=== PATIENT | male | born 1960 | race Caucasian/White ===

== ENCOUNTER 2019-12-03 07:53 | Day surgery (SDC) | payer BC ==
[~2019-12-03 07:53] MED LIST: Bupivacaine 0.5% 50 ML MDV ONE; Lidocaine 1% with EPINEPHrine 1:100,000 50 ML MDV ONE; Midazolam 1 MG/ML 2 ML SDV ONE; Propofol 200 MG/20 ML SDV ONE; fentaNYL 100 MCG/2 ML SDV ONE
[2019-12-03] MEDS ORDERED: Acetaminophen 500 MG Tab PO ONE (08:00)
[2019-12-03] MEDS ORDERED: Dextrose 5%-Lactated Ringers 1,000 ML IV SCH (08:30)
[2019-12-03] MEDS ORDERED: ceFAZolin 2 GM in Premix Bag 1 BAG IV ONE (08:30)
[2019-12-03] MEDS ORDERED: Albuterol 8 GM Inhaler INH ONE (08:45)
[2019-12-03] MEDS ORDERED: Levalbuterol Tartrate HFA 15 GM Inhaler INH PRN (08:51)
[2019-12-03] MEDS ORDERED: Propofol 200 MG/20 ML SDV ONE (09:17)
[2019-12-03] MEDS ORDERED: Glycopyrrolate 0.2 MG/ML 5 ML MDV ONE (09:25)
[2019-12-03] MEDS ORDERED: Ketorolac 60 MG/2 ML SDV ONE (10:07)
[2019-12-03] MEDS ORDERED: hydrOXYzine HCL 100 MG/2 ML SDV IM ONE (10:16)
[2019-12-03] MEDS ORDERED: fentaNYL 100 MCG/2 ML SDV IVPUSH ONE (10:17)
[2019-12-03] MEDS ORDERED: Acetaminophen/oxyCODONE 325-5 MG Tab PO PRN (11:45)
--- NOTE | 2019-12-13 12:31 | OR ---
DATE OF PROCEDURE: 12/03/2019 SURGEON: Mahamed Wynne MD PREOPERATIVE DIAGNOSIS: Left inguinal hernia. POSTOPERATIVE DIAGNOSES: 1. Direct left inguinal hernias. 2. Left ilioinguinal and iliohypogastric nerves at risk for scar entrapment. OPERATIVE PROCEDURE: Left inguinal exploration with: 1. Repair of left inguinal hernia with mesh (96834). 2. Division of portion of left ilioinguinal nerve ([id number]). 3. Division of portion of left iliohypogastric nerve (08773). ANESTHESIA: Local plus IV sedation. RENAL CASE MANAGER: Rachael Conteh PA-C INDICATIONS FOR PROCEDURE: A 59-year-old male presenting with increasingly significant hernia involving the left inguinal area. Plan is to proceed with a left inguinal exploration with repair with mesh plug technique. The potential risks of the procedure including bleeding, infection, injury to underlying viscera, problems with mesh becoming infected or hernia recurring, and that we often will divide the ilioinguinal nerve and/or iliohypogastric nerves if it is felt to be at risk for entrapment by scarring and resulting in chronic pain were all gone over, and the patient wishes to proceed. DETAILS OF PROCEDURE: The patient was taken to the operating room and placed in the supine position. After IV sedation was administered, the left inguinal area was prepped and draped and anesthetized with 1% lidocaine mixed with Marcaine. A standard left inguinal incision was made and carried down through the skin and subcutaneous tissue and through the external oblique aponeurosis. Subaponeurotic flaps were then raised superiorly and inferiorly. The patient was noted to have no indirect component to the inguinal hernia. After dissection of the cord structures, did have a fairly broad-based direct hernia. The ilioinguinal nerve and iliohypogastric nerves were both felt to be at risk for scar entrapment with subsequent placement of flat portion of the mesh, the systems were therefore divided and excised out to the far lateral aspect of the incision. The transversalis fascia over the direct hernia was then incised, allowing dissection underneath the conjoined tendon medially, superiorly, and laterally. The extra large mesh plug was then placed into the defect. This was fixed to the Sergio ligament with titanium tacking screws to the underside of the conjoined tendon medially, superiorly, and laterally with horizontal mattress sutures of 2-0 Vicryl stitch. The flat portion of the mesh plug system was then placed across the floor and sutured to the lateral cord structures with some 3-0 Vicryl stitch and fixed to the pubic tubercle with titanium tacking screws as well. The external oblique aponeurosis was then reapproximated over the cord structures, and this was with a 3-0 Vicryl stitch which also was used to close the subcutaneous tissue, and the skin was then closed with a 4-0 Vicryl subcuticular stitch. Dressing was applied. The patient was taken to the recovery room in satisfactory condition. Physician assistant golf course superintendent, Rachael Conteh, played an essential role in assisting in this case, helping to position the patient, retract structures as needed, as well as suturing and cutting sutures when indicated. Her presence improved patient's safety and decreased operative time. Mahamed Wynne MD /[id number] MTDD
== END 2019-12-03 12:35 | disposition home or self-care (01) ==
LOC: JP.SDS 07:53
PROVIDERS: ATTEND Surgery
DX: K40.90 Unilateral inguinal hernia, without obstruction or gangrene, not specified as recurrent (principal); I10 Essential (primary) hypertension; J45.909 Unspecified asthma, uncomplicated
CPT/HCPCS: 49505; 64790; 88305; A9270; C1713; C1781; J0690; J1885; J2250; J2704; J3010; J3410; J3490; J7121

== ENCOUNTER 2020-03-25 09:35 | Emergency (ER) | payer BC, OTHER ==
--- NOTE | 2020-03-25 10:08 | EDM.PDOC ---
ED HPI GENERAL MEDICAL PROBLEM - General Chief Complaint: Headache Stated Complaint: COVID POS, HEADACHE, NAUSEA, CHILLS Time Seen by Provider: 03/25/20 10:04 Source of Information: Reports: Patient, Old Records History Limitations: Reports: No Limitations - History of Present Illness INITIAL COMMENTS - FREE TEXT/NARRATIVE: Helder is a 59-year-old male presenting to the ED for complaints of headache, body aches, fever, chills with night sweats, and severe nausea that is unrelenting to the use of Zofran. He reports he is only been able to eat a very small amount of food in the last week. He also reports that he is not been able to drink much as it causes nausea, vomiting, and dry heaving. Emesis is pretty much clear discharge and he reports that he was told by the clinician at the clinic that it was due to his postnasal drip, however, is likely due to the COVID-19 affecting his GI tract. The patient was seen in the [facility] clinic and diagnosed on Friday with COVID-19. He has multiple comorbidities putting him in the high risk group for COVID-19 including moderate persistent asthma, essential hypertension, hypercholesterolemia, and at the time of his notification of Covid was offered Bamlanivimab which he had declined. His onset of symptoms were 9 days ago and he is only eligible for this infusion for 10 days from the onset of symptoms. He was instructed to quarantine by the [facility] clinic Headache Pain Score (Numeric/FACES): 4 - Related Data Allergies Allergy/AdvReac Type Severity Reaction Status Date / Time bee venom protein (honey bee) Allergy Hives Verified 03/25/20 10:07 cat dander Allergy Hives Verified 03/25/20 10:07 dog dander Allergy Hives Verified 03/25/20 10:07 pollen extracts Allergy Hives Verified 03/25/20 10:07 albuterol AdvReac Anxiety Verified 03/25/20 10:07 Home Meds: Home Meds Fluticasone Propionate [Clarispray] 1 spray INH DAILY 12/01/19 [History] Levalbuterol Tartrate [Xopenex HFA] 2 puff INH DAILY 12/01/19 [History] Losartan Potassium [Cozaar] 100 mg PO DAILY 12/01/19 [History] Mometasone Furoate [Asmanex] 2 puff INH BID 12/01/19 [History] Simvastatin [Zocor] 10 mg PO DAILY 12/01/19 [History] Escitalopram Oxalate 20 mg PO DAILY 12/03/19 [History] Montelukast [Singulair] 10 mg PO DAILY 03/25/20 [History] Tiotropium Homer [Spiriva Respimat] 2 puff IH DAILY 03/25/20 [History] Past Medical History HEENT History: Reports: Impaired Vision Cardiovascular History: Reports: High Cholesterol, Hypertension Respiratory History: Reports: Asthma Other Gastrointestinal History: left inguinal hernia here for repair, 11/2019 - Past Surgical History HEENT Surgical History: Reports: None Cardiovascular Surgical History: Reports: None GI Surgical History: Reports: Appendectomy, Colonoscopy Social & Family History - Family History Family Medical History: No Pertinent Family History - Caffeine Use Caffeine Use: Reports: None ED ROS GENERAL - Review of Systems Review Of Systems: See Below Constitutional: Reports: Fever, Chills, Malaise, Fatigue, Night Sweats, Diaphoresis, Decreased Appetite HEENT: Reports: Rhinitis Respiratory: Reports: Shortness of Breath, Cough Cardiovascular: Reports: No Symptoms Endocrine: Reports: Fatigue GI/Abdominal: Reports: Abdominal Pain, Constipation, Decreased Appetite, Nausea, Vomiting : Reports: No Symptoms Musculoskeletal: Reports: Muscle Pain, Muscle Stiffness Neurological: Reports: Headache Psychiatric: Reports: No Symptoms Hematologic/Lymphatic: Reports: No Symptoms Immunologic: Reports: No Symptoms ED EXAM, GENERAL - Physical Exam Exam: See Below Exam Limited By: No Limitations General Appearance: Alert, Mild Distress Eye Exam: Bilateral Eye: EOMI, PERRL Nose: Clear Rhinorrhea Throat/Mouth: Normal Inspection, Normal Lips, Normal Oropharynx, Normal Voice, No Airway Compromise Head: Atraumatic, Normocephalic Neck: Normal Inspection, Supple, Non-Tender, Full Range of Motion. No: Lymphadenopathy (R), Lymphadenopathy (L) Respiratory/Chest: No Respiratory Distress, Lungs Clear, Normal Breath Sounds Cardiovascular: Normal Peripheral Pulses, Regular Rate, Rhythm, No Murmur Peripheral Pulses: 2+: Radial (L), Radial (R) GI/Abdominal: Soft, Non-Tender, Abnormal Bowel Sounds (Diminished bowel sounds). No: Guarding, Rigid, Rebound Back Exam: Normal Inspection, Full Range of Motion Extremities: Normal Inspection, Normal Range of Motion Neurological: Alert, Oriented, Normal Cognition, No Motor/Sensory Deficits Psychiatric: Normal Affect, Normal Mood Skin Exam: Warm, Dry, Intact, Normal Color, No Rash Lymphatic: No Adenopathy Course - Vital Signs Last Recorded V/S: Last Vital Signs Temp 36.6 C 03/25/20 10:01 Pulse 70 03/25/20 10:01 Resp 16 03/25/20 10:01 BP Pulse Ox 97 03/25/20 10:01 - Orders/Labs/Meds Orders: Active Orders 24 hr Category Date Time Status Vital Signs [RC] Q15M Care 03/25/20 10:34 Active EPINEPHrine [Adrenalin] Med 03/25/20 10:33 Active 0.3 mg IM ONETIME PRN Famotidine [Pepcid] Med 03/25/20 10:33 Active 20 mg IVPUSH ONETIME PRN Sodium Chloride 0.9% [Saline Flush] Med 03/25/20 10:33 Active 10 ml FLUSH ASDIRECTED PRN Sodium Chloride 0.9% [Saline Flush] Med 03/25/20 10:45 Active 30 ml FLUSH ASDIRECTED diphenhydrAMINE [Benadryl] Med 03/25/20 10:33 Active 50 mg IVPUSH ONETIME PRN methylPREDNISolone Sod Succ [Solu-MEDROL] Med 03/25/20 10:33 Active 125 mg IVPUSH ONETIME PRN Saline Lock Insert [OM.PC] Routine Oth 03/25/20 10:33 Ordered Medication Orders Diphenhydramine HCl (Benadryl) 50 mg IVPUSH ONETIME PRN PRN Reason: hypersensitivity reaction Epinephrine HCl (Adrenalin) 0.3 mg IM ONETIME PRN PRN Reason: hypersensitivity reaction Famotidine (Pepcid) 20 mg IVPUSH ONETIME PRN PRN Reason: hypersensitivity reaction Methylprednisolone Sodium Succinate (Solu-Medrol) 125 mg IVPUSH ONETIME PRN PRN Reason: hypersensitivity reaction Sodium Chloride (Saline Flush) 30 ml FLUSH ASDIRECTED LEONARDO Sodium Chloride (Saline Flush) 10 ml FLUSH ASDIRECTED PRN PRN Reason: Keep Vein Open Labs: Laboratory Tests 03/25/20 03/25/20 03/25/20 Range/Units 10:50 10:50 10:50 WBC 6.1 (4.5-11.0) K/uL RBC 4.61 (4.30-5.90) M/uL Hgb 13.6 (12.0-15.0) g/dL Hct 41.8 (40.0-54.0) % MCV 91 (80-98) fL MCH 30 (27-31) pg MCHC 33 (32-36) % Plt Count 251 (150-400) K/uL Neut % (Auto) 71 H (36-66) % Lymph % (Auto) 22 L (24-44) % [place] % (Auto) 7 H (2-6) % Eos % (Auto) 0 L (2-4) % Baso % (Auto) 0 (0-1) % D-Dimer, Quantitative 635.71 H (0.0-500.0) ng/mL Sodium 138 L (140-148) mmol/L Potassium 4.2 (3.6-5.2) mmol/L Chloride 100 (100-108) mmol/L Carbon Dioxide 27 (21-32) mmol/L Anion Gap 15.2 H (5.0-14.0) mmol/L BUN 15 (7-18) mg/dL Creatinine 1.0 (0.8-1.3) mg/dL Est Cr Clr Drug Dosing 83.14 mL/min Estimated GFR (MDRD) > 60 (>60) Glucose 105 (74-106) mg/dL Lactic Acid (0.4-2.0) mmol/L Calcium 8.9 (8.5-10.1) mg/dL Ferritin 383 (8-388) ng/ml Total Bilirubin 0.4 (0.2-1.0) mg/dL AST 22 (15-37) U/L ALT 23 (12-78) U/L Alkaline Phosphatase 21 L (46-116) U/L C-Reactive Protein 6.28 H (0.0-0.3) mg/dL Total Protein 7.1 (6.4-8.2) g/dL Albumin 3.0 L (3.4-5.0) g/dL Globulin 4.1 H (2.3-3.5) g/dL Albumin/Globulin Ratio 0.7 L (1.2-2.2) Procalcitonin ng/mL 03/25/20 03/25/20 Range/Units 10:50 10:50 WBC (4.5-11.0) K/uL RBC (4.30-5.90) M/uL Hgb (12.0-15.0) g/dL Hct (40.0-54.0) % MCV (80-98) fL MCH (27-31) pg MCHC (32-36) % Plt Count (150-400) K/uL Neut % (Auto) (36-66) % Lymph % (Auto) (24-44) % [place] % (Auto) (2-6) % Eos % (Auto) (2-4) % Baso % (Auto) (0-1) % D-Dimer, Quantitative (0.0-500.0) ng/mL Sodium (140-148) mmol/L Potassium (3.6-5.2) mmol/L Chloride (100-108) mmol/L Carbon Dioxide (21-32) mmol/L Anion Gap (5.0-14.0) mmol/L BUN (7-18) mg/dL Creatinine (0.8-1.3) mg/dL Est Cr Clr Drug Dosing mL/min Estimated GFR (MDRD) (>60) Glucose (74-106) mg/dL Lactic Acid 1.4 (0.4-2.0) mmol/L Calcium (8.5-10.1) mg/dL Ferritin (8-388) ng/ml Total Bilirubin (0.2-1.0) mg/dL AST (15-37) U/L ALT (12-78) U/L Alkaline Phosphatase (46-116) U/L C-Reactive Protein (0.0-0.3) mg/dL Total Protein (6.4-8.2) g/dL Albumin (3.4-5.0) g/dL Globulin (2.3-3.5) g/dL Albumin/Globulin Ratio (1.2-2.2) Procalcitonin < 0.05 ng/mL Meds: Medications Generic Name Dose Route Start Last Admin Trade Name Freq PRN Reason Stop Dose Admin Diphenhydramine HCl 50 mg 03/25/20 10:33 Benadryl IVPUSH ONETIME PRN hypersensitivity reaction Epinephrine HCl 0.3 mg 03/25/20 10:33 Adrenalin IM ONETIME PRN hypersensitivity reaction Famotidine 20 mg 03/25/20 10:33 Pepcid IVPUSH ONETIME PRN hypersensitivity reaction Methylprednisolone Sodium Succinate 125 mg 03/25/20 10:33 Solu-Medrol IVPUSH ONETIME PRN hypersensitivity reaction Sodium Chloride 30 ml 03/25/20 10:45 Saline Flush FLUSH ASDIRECTED LEONARDO Sodium Chloride 10 ml 03/25/20 10:33 Saline Flush FLUSH ASDIRECTED PRN Keep Vein Open Discontinued Medications Generic Name Dose Route Start Last Admin Trade Name Zara PRN Reason Stop Dose Admin Sodium Chloride 1,000 mls @ 999 mls/hr 03/25/20 10:33 03/25/20 10:53 Normal Saline IV 03/25/20 11:33 999 mls/hr .BOLUS ONE Administration Bamlanivimab 700 mg/ Sodium 170 mls @ 270 mls/hr 03/25/20 10:33 Chloride IV 03/25/20 11:10 ONETIME ONE Protocol Lorazepam 1 mg 03/25/20 11:33 03/25/20 11:40 Ativan PO 03/25/20 11:34 1 mg ONETIME ONE Administration Metoclopramide HCl 10 mg 03/25/20 10:33 03/25/20 10:54 Reglan IVPUSH 03/25/20 10:34 10 mg ONETIME ONE Administration - Re-Assessments/Exams Free Text/Narrative Re-Assessment/Exam: 03/25/20 10:39 patient is 9 days into COVID-19 and has had no significant improvement in his symptoms. He reports he was contacted by a [facility] contact tracer who recommended he could go back to work tomorrow, however, he still having significant fever, chills, headache, body aches, nausea and vomiting and the guidelines clearly state that either 10 days quarantine or 48 hours after the cessation of symptoms and I would still consider the patient to be symptomatic at this time. As were 9 days and I did offer him the infusion of Bamlanivimab as he qualifies for this infusion which will likely help him significantly. In addition we will get labs including CBC, comprehensive metabolic panel, D-dimer, CRP, ferritin, procalcitonin, and lactic acid to assess his Covid activity. His chest exam is unremarkable so we will not proceed with a chest x-ray. The patient is excepted the offer for the infusion which we will arrange. In the meantime we are going to give the patient a liter of IV normal saline and Reglan 10 mg IV to help rehydrate him and treat his nausea. 03/25/20 11:49 I reviewed the patient's labs showing a normal CBC and comprehensive metabolic panel. His D-dimer is still elevated at 683. His procalcitonin is negative at less than 0.05. C-reactive protein is 6.28. Lactate is negative at 1.4 and ferritin is negative at 388. Based on the patient's symptomatology and the continued elevation of the D-dimer and CRP he likely still has active disease. At this point we will discharge him for outpatient infusion of the Bamlanivimab. Departure - Departure Time of Disposition: 11:51 Disposition: Home, Self-Care 01 Condition: Fair Clinical Impression: COVID-19, Dehydration - Discharge Information *PRESCRIPTION DRUG MONITORING PROGRAM REVIEWED*: Not Applicable *COPY OF PRESCRIPTION DRUG MONITORING REPORT IN PATIENT ROBEL: Not Applicable Instructions: COVID-19 Frequently Asked Questions, What You Should Know About COVID-19 to Protect Yourself and Others - [facility] Referrals: Simon Olivera MD [Primary Care Provider] - Forms: ED Department Discharge, ED Department Discharge Care Plan Goals: We will continue to complete the infusion of fluid. We will initiate the infusion of the Bamlanivimab as an outpatient as that is our standing protocol. You should stay off work until you are symptom-free for 48 hours. Until then you are still considered to be contagious. I have provided a work note stating such. Should you have any significant worsening in symptoms, please return to the ED for reevaluation. Sepsis Event Note (ED) - Focused Exam Vital Signs: Vital Signs Temp Pulse Resp Pulse Ox 03/25/20 10:01 36.6 C 70 16 97 - Problem List & Annotations (1) COVID-19 SNOMED Code(s): 028952004 Code(s): U07.1 - COVID-19 Status: Acute Priority: High Current Visit: Yes (2) Dehydration SNOMED Code(s): 13663723 Code(s): E86.0 - DEHYDRATION Status: Acute Priority: High Current Visit: Yes - Problem List Review Problem List Initiated/Reviewed/Updated: Yes - My Orders Last 24 Hours: My Active Orders 03/25/20 10:33 EPINEPHrine [Adrenalin] 0.3 mg IM ONETIME PRN Famotidine [Pepcid] 20 mg IVPUSH ONETIME PRN Sodium Chloride 0.9% [Saline Flush] 10 ml FLUSH ASDIRECTED PRN diphenhydrAMINE [Benadryl] 50 mg IVPUSH ONETIME PRN methylPREDNISolone Sod Succ [Solu-MEDROL] 125 mg IVPUSH ONETIME PRN Saline Lock Insert [OM.PC] Routine 03/25/20 10:34 Vital Signs [RC] Q15M 03/25/20 10:45 Sodium Chloride 0.9% [Saline Flush] 30 ml FLUSH ASDIRECTED - Assessment/Plan Last 24 Hours: My Active Orders 03/25/20 10:33 EPINEPHrine [Adrenalin] 0.3 mg IM ONETIME PRN Famotidine [Pepcid] 20 mg IVPUSH ONETIME PRN Sodium Chloride 0.9% [Saline Flush] 10 ml FLUSH ASDIRECTED PRN diphenhydrAMINE [Benadryl] 50 mg IVPUSH ONETIME PRN methylPREDNISolone Sod Succ [Solu-MEDROL] 125 mg IVPUSH ONETIME PRN Saline Lock Insert [OM.PC] Routine 03/25/20 10:34 Vital Signs [RC] Q15M 03/25/20 10:45 Sodium Chloride 0.9% [Saline Flush] 30 ml FLUSH ASDIRECTED
[2020-03-25] MEDS ORDERED: diphenhydrAMINE 50 MG/ML SDV IVPUSH PRN (10:33)
[2020-03-25] MEDS ORDERED: EPINEPHrine 1 MG/ML SDV IM PRN (10:33)
[2020-03-25] MEDS ORDERED: BAMLANIVIMAB IV ONE (10:33)
[2020-03-25] MEDS ORDERED: methylPREDNISolone Sodium Succinate 125 MG/2 ML SDV IVPUSH PRN (10:33)
[2020-03-25] MEDS ORDERED: Metoclopramide 10 MG/2 ML SDV IVPUSH ONE (10:33)
[2020-03-25] MEDS ORDERED: SODIUM CHLORIDE 0.9% IV ONE (10:33)
[2020-03-25] MEDS ORDERED: Sodium Chloride 0.9% 10 ML Syringe FLUSH PRN (10:33)
[2020-03-25] MEDS ORDERED: Sodium Chloride 0.9% 1,000 ML IV ONE (10:33)
[2020-03-25] MEDS ORDERED: Famotidine 20 MG/2 ML SDV IVPUSH PRN (10:33)
[2020-03-25] MEDS ORDERED: Sodium Chloride 0.9% 10 ML Syringe FLUSH SCH (10:45)
[2020-03-25] MEDS ORDERED: LORazepam 1 MG Tab PO ONE (11:33)
== END 2020-03-25 12:07 | disposition home or self-care (01) ==
LOC: JP.ED 09:35
DX: U07.1 COVID-19 (principal); E86.0 Dehydration; I10 Essential (primary) hypertension; J45.909 Unspecified asthma, uncomplicated; E78.00 Pure hypercholesterolemia, unspecified; Z91.030 Bee allergy status; Z91.048 Other nonmedicinal substance allergy status; Z88.8 Allergy status to other drugs, medicaments and biological substances; Z79.899 Other long term (current) drug therapy
CPT/HCPCS: 36415; 80053; 82728; 83605; 84145; 85025; 85379; 86140; 96374; 99283-25; 99285; A9270-GY; J2765; J7030

== ENCOUNTER 2021-09-07 11:53 | Emergency (ER) | payer MEDICAID | END 2021-09-07 13:45 | disposition home or self-care (01) | LOC: JP.ED 11:53 | DX: I82.402 Acute embolism and thrombosis of unspecified deep veins of left lower extremity (principal); E78.00 Pure hypercholesterolemia, unspecified; I10 Essential (primary) hypertension; Z91.030 Bee allergy status; Z91.048 Other nonmedicinal substance allergy status; Z88.8 Allergy status to other drugs, medicaments and biological substances; Z79.899 Other long term (current) drug therapy; Z90.49 Acquired absence of other specified parts of digestive tract; M79.605 Pain in left leg; M79.89 Other specified soft tissue disorders; I82.412 Acute embolism and thrombosis of left femoral vein | CPT/HCPCS: 36415; 80048; 85025; 85610; 85730; 93971-26-LT; 93971-LT; 99283 ==